=== PATIENT | female | born 1990 | race Two or more races ===

== ENCOUNTER 2021-03-13 08:33 | Emergency (ER) | payer OTHER, SELFPAY ==
[2021-03-13 08:47] VITALS: BP 121/65; PULSE 73; RESP 16; TEMP 37.1; O2SAT 99; BMI 23.5
[2021-03-13 08:57] VITALS: BP 115/65; PULSE 64; RESP 18; TEMP 37.4; O2SAT 100
[2021-03-13 09:40] LABS: IDNOW Serial# 9DD0AD1C; Strep A Nucleic Acid Negative (Negative)
[2021-03-13 09:55] LABS: COVID-19 Test Negative (Negative)
--- NOTE | 2021-03-13 10:17 | ED.URI ---
HPI - URI/Sore Throat General Chief Complaint: Upper Respiratory Symptoms Stated Complaint: sore throat, body ache, headache Time Seen by Provider: 03/13/21 10:17 Source: patient Mode of arrival: ambulatory Limitations: no limitations History of Present Illness HPI Narrative: 30-year-old female came in for evaluation of upper respiratory symptoms. Symptoms started 3 days ago as subjective fever, runny nose, sneezing, dry cough, headache, sore throat. Patient took her 2 vaccination for COVID, to family member at home sick with the same symptoms. No chest pain, unusual discharge, round pain, no nausea, no vomiting, no diarrhea. Review of Systems Review of Systems: All other systems are reviewed and are negative Constitutional: Reports as per HPI and Reports no additional constitutional complaints Eyes: Reports as per HPI and Reports no additional eye complaints Reports system reviewed and no additional complaints, except as documented Cardiovascular: Reports as per HPI and Reports no additional cardiovascular complaints Respiratory: Reports as per HPI and Reports no additional respiratory complaints Gastrointestinal: Reports as per HPI and Reports no additional gastrointestinal complaints Genitourinary: Reports no additional female genitourinary complaints Musculoskeletal: Reports no additional musculoskeletal complaints Skin/Breast: Reports system reviewed and no additional complaints, except as docu Psychiatric: Reports no additional psychiatric complaints Endocrine: Reports no additional endocrine complaints Hematologic/Lymphatic: Reports no additional hematologic/lymphatic complaints Allergic/Immunologic: Reports no additional allergic/immunologic complaints Reports system reviewed and no additional complaints, except as documented and Reports Abnormal speech present [facility] Social History Social History Alcohol intake: never Patient Tobacco Use Status: Never used Tobacco Use of substances other than those prescribed or required for medical reasons: No Advance Directives: No Advance Directives Information Provided: No Physical Exam Vital Signs: Vital Signs: Last Vital Signs Temp 99.3 F 03/13/21 08:57 Pulse 64 03/13/21 08:57 Resp 18 03/13/21 08:57 BP 115/65 03/13/21 08:57 Pulse Ox 100 03/13/21 08:57 Body Mass Index 23.5 Vital signs have been reviewed as appeared to be correct. Blood pressure normal. Heart rate normal. Respiration rate normal. Temperature normal. Oxygen saturation normal. Appearance: Alert. Oriented X3. No acute distress. Head: Normal external exam. Normocephalic. Atraumatic. No Herrera signs noted. No raccoon eyes noted Eyes: PERRLA. EOMI. Conjunctiva and sclera normal. Eyelids normal. ENT: TM's Normal. Pharynx normal. Uvula midline. Moist mucous membranes. No trismus noted. No drooling noted. No muffled voice noted. Neck: Normal inspection. Neck supple. FROM. No adenopathy. Thyroid Normal. No meningeal signs. No neck mass noted. CVS: Normal heart rate and rhythm. Heart sound normal. No murmurs noted. Pulses normal throughout. Respiratory: No respiratory distress. Painless inspiration. Breath sounds normal. No wheezes/rales/rhonchi noted. Chest nontender. No accessory muscle usage noted or decreased air movement noted. Abdomen: Soft and nontender. Bowel sounds normal in all 4 quadrants. No distention noted. No organomegaly noted. No visible injury noted. Back: No CVA tenderness. Full range of motion noted. Skin: Skin warm and dry. Normal skin color. Normal skin turgor. No rashes/lesions/lacerations noted. Extremities: No lower extremity edema. Extremities exhibit normal range of motion. Extremities nontender. Neuro: Oriented X 3. Cranial nerve exam: II-XII are grossly intact No motor deficit. No sensory deficit. Reflexes normal. Course Course Course Narrative: Assessment and plan. [age] year female came in with symptoms of upper respiratory symptoms with 2 other family member with the same symptoms, patient tested negative for rapid strep pharyngitis, negative also for flu/RSV/COVID-19. Will reassure the patient use NSAIDs if needed for body ache. MDM - URI/Sore Throat Lab Data Attestation: I reviewed the patient's lab results. Labs: Lab Results 03/13/21 03/13/21 Range/Units 09:17 09:17 COVID-19 (IRENE) Negative (Negative) COVID-19 Clin Com See Note S. pyogenes GrpA LALA Negative (Negative) Discharge Plan Discharge Clinical Impression: Viral infection Patient Disposition: Home, Self-Care Instructions: Viral Syndrome (ED) Referrals: Physician,Unknown J [Primary Care Provider] - 2 days
== END 2021-03-13 11:12 | disposition home or self-care (01) ==
PROVIDERS: Emergency Provider Emergency Medicine
DX: B34.9 Viral infection, unspecified (principal); Z20.822 Contact with and (suspected) exposure to COVID-19
CPT/HCPCS: 36415; 87635; 87651; 99283; 99284

== ENCOUNTER 2024-09-08 20:28 | Emergency (ER) | payer OTHER, SELFPAY ==
--- NOTE | 2024-09-08 20:34 | ED_ITS ---
HPI - General Adult General Chief complaint: Allergic Reaction Stated complaint: Allergic reaction Source: patient Mode of arrival: ambulatory Limitations: no limitations History of Present Illness ED Provider: Julita [facility] narrative: 34 yo female with no significant PMHx presents to the ED due to having allergic reaction. She states last night while at clients house she began to have an itching total body rash. Rash has persisted through the day today. Denies use of new products/soap/lotion. Denies difficulty breathing. Has not taken any medications, does not have allergies to her knowledge. Denies SOB, chest pain, nausea, vomiting. MD complaint: urticaria Onset (ago): day(s) Location: abdomen, upper extremity and lower extremity Radiation: non-radiation Severity: mild Quality: other (pruritic ) Pain Consistency: constant Relieving factors: none Exacerbating factors: none Associated symptoms: denies other symptoms Treatments prior to arrival: none Related Data Previous Rx's ?Medication ?Instructions ?Recorded cetirizine 10 mg tablet 10 mg PO DAILY #14 tabs 09/08/24 famotidine 20 mg tablet 20 mg PO DAILY #7 tabs 09/08/24 prednisone 10 mg tablet See Rx Instructions .Route 09/08/24 .COMPLEX #17 tabs Allergies Allergy/AdvReac Type Severity Reaction Status Date / Time tramadol AdvReac Dizziness Verified 09/08/24 20:37 Review of Systems Review of Systems: As per HPI Yes all other systems are reviewed and are negative Constitutional: Constitutional: Reports as per HPI [facility] Social History Social History Alcohol intake: never Patient Tobacco Use Status: Never used Tobacco Physical Exam ED Vital Signs: Vital signs have been reviewed and appear to be correct. Blood pressure normal. Heart rate normal. Respiratory rate normal. Temperature normal. Oxygen sat uration normal. Const General: cooperative, healthy appearing and no acute distress Orientation/consciousness: oriented to person, oriented to place, oriented to time and patient oriented x3 Limitations: no limitations HENMT Head: Yes normal to inspection, Yes normocephalic and Yes atraumatic Ears: external ears normal General nose exam: Normal external nose present Face and sinus: Yes normal facial exam and Yes face symmetric Mouth: Normal oral and palatal mucosa present, lip normal, tongue normal, oropharynx normal and moist mucous membranes Throat: Yes uvula midline, No uvula laterally displaced, No uvular edema and No cobblestoning Eyes General: appearance normal, both eyes and all related structures Pupils: Equal, round and reactive pupils present Neck Neck: Yes normal visual inspection and Yes supple Resp Effort & Inspection: normal respiratory effort and able to speak in complete sentences Auscultation: clear to auscultation bilaterally Cardio Rate: regular rate Rhythm: regular rhythm Heart sounds: S1 normal heart sound present and S2 normal heart sound present GI Palpation (GI): Soft to palpation and nontender Auscultation: normoactive bowel sounds General: Yes no CVA tenderness Back/Spine/Pelvis Back: no CVA tenderness Skin General skin exam: elasticity normal and turgor normal Rashes: rashes noted (diffuse urticaria to extremities and trunk, mildly er ythematous macules) Neuro General: oriented to person, oriented to place, oriented to time, patient oriented x3, moves all extremities, no focal motor deficits and CN's II-XI intact bilaterally Cranial nerves: Yes Equal, round and reactive pupils present Cognition (Neuro): normal cognition Extrem General: Yes full ROM, Yes no pedal edema and Yes no calf tenderness Psych Mental Status: mental status grossly normal Affect: normal affect Thought process: Normal thought process present Course Course Course Narrative: This is a rapid medical exam performed by Jackeline Cancino NP: Additional HPI, ROS, PE not included below will be deferred to primary provider. 34 yo female with no significant PMHx presents to the ED due to having allergic reaction. She states last night while at clients house she began to have an itching total body rash. Rash has persisted through the day today. Denies use of new products/soap/lotion. Denies difficulty breathing. Has not taken any medications, does not have allergies to her knowledge. Denies SOB, chest pain, nausea, vomiting. PE: airway patent, urticaria to extremities and trunk, no angio edema, uvula edema Medical Decision Making Medical Decision Making MDM Narrative: 34 yo female with no significant PMHx presents to the ED due to having allergic reaction. She states last night while at clients house she began to have an itching total body rash. Rash has persisted through the day today. Denies use of new products/soap/lotion. Denies difficulty breathing. Has not taken any medications, does not have allergies to her knowledge. Denies SOB, chest pain, nausea, vomiting. On physical exam diffuse mildly erythematous macular rash over extremities and trunk. No facial edema, airway patent, Uvula midline without edema, no difficulty breathing. Given 40mg prednisone, 20mg famotidine, 10 lortadine. Differential includes urticaria, contact dermatitis, viral illness, do not suspect anaphylaxis. Do not suspect TEN/SJS, DRESS, TTP/DIC, necrotizing fasciitis, meningococcemia, SSSS, TSS, anaphylaxis. Will be prescribed prednisone taper. Differential Diagnosis Differential Diagnoses: The differential diagnosis associated with the presentation includes as per [facility] Admission/Observation Consideration of admission/observation: Escalation of care including admission/observation considered Patient would have been admitted to the hospital had their work up had any findings where hospital admission was appropriate and their clinical presentation warranted hospital admission. External Record Review External record reviewed: Inpatient record, Office record and Outpatient record Prescription Management I considered prescription management with: Other Discharge Plan Discharge Clinical Impression: Urticaria Patient Disposition: Home, Self-Care Instructions: Urticaria (ED), Acute Rash (ED) Additional Instructions: You were evaluated in the emergency department today for a rash. Your evaluation did not reveal evidence of conditions requiring emergent medical treatment. You are being prescribed a tapering dose of a steroid called prednisone to decrease inflammation. We also recommend that you take a daily antihistamine such as loratadine (Claritin) or cetirizine (Zyrtec). You can also add over the counter famotidine (Pepcid) which is a different type of antihistamine. You can apply a thick unscented lotion to the affected areas such as Eucerine or Vanicream several times daily. Follow up with your primary care provider this week. If your symptoms do not improve, follow up with a firer [employer]. Return to the emergency department if you develop difficulty breathing or shortness of breath, swelling to lips, tongue, fever, rash inside your mouth or to your palms/soles or any other concerning symptoms. Prescriptions: New prednisone 10 mg tablet See Rx Instructions .ROUTE .COMPLEX Qty: 17 0RF Rx Instructions: 40mg (4 tabs) x 2 days, then 20mg (2 tabs) x 3 days, then 10mg (1 tab) x 3 days famotidine 20 mg tablet 20 mg PO DAILY Qty: 7 0RF cetirizine 10 mg tablet 10 mg PO DAILY Qty: 14 0RF Print Language: Montserratian
[2024-09-08 20:35] VITALS: BP 117/68; PULSE 64; RESP 20; TEMP 36.1; O2SAT 98; BMI 28.2
[2024-09-08] MEDS: Famotidine 20 MG TABLET PO (20:43)
[2024-09-08] MEDS: Loratadine 10 MG TABLET PO (20:43)
[2024-09-08] MEDS: predniSONE 20 MG TABLET 40 MG PO (20:43)
--- OUTSIDE RECORDS SUMMARY | 2024-09-08 20:47 | XMS_ITS | Clinical Summary ---
Author Organization [facility] ity Address [address] [place] [address] Care Team Providers Care Waiter Waitress Name Role Phone Trevon Last MD Primary Care Provider [phone] Surgical History Surgery Date Site/Laterality Comments TUBAL LIGATION 02/2020 PROCEDURE: HISTORICAL TUBAL LIGATION Medical History Medical History Date Comments Anxiety 06/03/2017 DX:Anxiety Kidney lesion, teller, left 11/19/2017 DX:K idney lesion, teller, left Family History Medical History Relation Name Comments No Known Problems Father No Known Problems Mother Relation Name Status Comments Father Alive Mother Alive Social History Tobacco Use Types Packs/Day Years Used Date Smoking Tobacco: Never Smokeless Tobacco: Never Alcohol Use Standard Drinks/Week Comments Never 0 (1 standard drink = 0.6 oz pur e alcohol) Comments Unknown Sex and Gender Information Value Date Recorded Sex Assigned at Not on file Legal Sex Female 6:47 PM EST Gender Identity Not on file Sexual Orientation Not on file Obstetrics History Last Filed Vital Signs Vital Sign Reading Time Taken Comments Blood Pressure 104/60 02/09/2024 2:53 PM EDT Pulse 86 02/09/2024 2:53 PM EDT Temperature - - Respiratory Rate - - Oxygen Saturation - - Inhaled Oxygen Concentration - - Weight 77.3 kg (170 lb 8 oz) 10/30/2023 11:33 AM EDT Height 170.2 cm (5' 7 ) 10/30/2023 11:33 AM EDT Body Mass Index 26.7 10/30/2023 11:33 AM EDT Plan of Treatment Health Maintenance Due Date Last Done Comments Hepatitis B Vaccines (1 of 3 - 19+ 3-dose series) 2011 Pneumococcal Vaccine: Pediatrics (0 to 5 Years) and At-Risk Patients (6 to 64 Years) (1 of 2 - PCV) 2011 Cervical Cancer Screening: P ap Smear 2013 Depression Screening 04/12/2022 HIV Screening 04/12/2022 Hepatitis C Screening 04/12/2022 Social Influencers of Health Screening 04/12/2022 COVID-19 Vaccine (1 - 2023-2 5 season) 2024 Influenza Vaccine (Season Ended) 2025 DTaP,Tdap,and Td Vaccines (3 - Td or Tdap) 10/29/2033 10/30/2023, 11/18/2014 HIB Vaccines Aged Out No longer eligi ble based on patient's age to complete this topic HPV Vaccines Aged Out No longer eligi ble based on patient's age to complete this topic Hepatitis A Vaccines Aged Out No long er eligible based on patient's age to complete this topic IPV Vaccines Aged Out No longer eligi ble based on patient's age to complete this topic MMR Vaccines Aged Out No longer eligi ble based on patient's age to complete this topic Meningococcal ACWY Vaccine Aged Out N o longer eligible based on patient's age to complete this topic Meningococcal B Vaccine Aged Out No l onger eligible based on patient's age to complete this topic RSV Immunization Patients Under 20 months Aged Out No longer eligible b ased on patient's age to complete this topic Varicella Vaccines Aged Out No longer eligible based on patient's age to complete this topic Care Teams Waiter Waitress Relationship Specialty Start Date End Date Trevon Last MD [address] [place] [id number] PCP - General Internal Medicine 10/25/18
[2024-09-08 20:51] VITALS: BP 117/68; PULSE 64; RESP 20; TEMP 36.1; O2SAT 98
== END 2024-09-08 20:54 | disposition home or self-care (01) ==
PROVIDERS: Emergency Provider Emergency Medicine
DX: L50.9 Urticaria, unspecified (principal)
CPT/HCPCS: 99282; 99283